=== PATIENT | male | born 1990 | race Caucasian/White ===

== ENCOUNTER 2017-08-22 01:45 | Emergency (ER) | payer SELFPAY ==
[~2017-08-22] VITALS: Ht 180.3 cm; Wt 113.4 kg
[2017-08-22 02:04] VITALS: BP 155/92
[2017-08-22] MEDS ORDERED: ACYC400T PO (02:18)
[2017-08-22] MEDS ORDERED: DOXY100C14 PO (02:18)
--- NOTE | 2017-08-22 02:18 | PHYS DOC ---
Past History Past Medical History: No Pertinent History Past Surgical History: No Surgical History Alcohol Use: Occasionally Drug Use: None Adult General Chief Complaint Chief Complaint: SEXUALLY TRANSMITTED DISEASE [facility] HPI Patient is a pleasant 27-year-old male who has had unprotected intercourse with his partner 2 weeks ago and has now developed discharge from his penis and lesions on the service of his shaft of his penis. Patient is in a relationship with a girlfriend and admits she was unfaithful to him 2 weeks ago and she exposed to gonorrhea and chlamydia. He has developed a small vesicular rash on the surface of his penis which he is concerned maybe for herpes. He's asked for no testing just treatment empirically. He denies any dysuria urgency or frequency discharge discharge from his penis. Denies any back pain, fevers, chills, headache, nausea, vomiting or diarrhea. He denies any prior history of the same. He denies any joint pain, rashes lower body or other symptoms. Review of Systems Review of Systems Constitutional: Denies fever or chills [] Eyes: Denies change in visual acuity, redness, or eye pain [] HENT: Denies nasal congestion or sore throat [] Respiratory: Denies cough or shortness of breath [] Cardiovascular: No additional information not addressed in HPI [] GI: Denies abdominal pain, nausea, vomiting, bloody stools or diarrhea [] : Denies complains of penile discharge Musculoskeletal: Denies back pain or joint pain [] Integument: Patient complains only of a skin rash on the top of his penis Neurologic: Denies headache, focal weakness or sensory changes [] Endocrine: Denies polyuria or polydipsia [] Physical Exam Physical Exam Vital signs written on the chart patient is noted to be mildly tachycardic and hypertensive. Constitutional: Well developed, well nourished, no acute distress, non-toxic appearance. Patient is somewhat anxious and upset[] Cardiovascular:Heart rate regular rhythm, no murmur [] Lungs & Thorax: Bilateral breath sounds clear to auscultation [] Skin: Warm, dry, shallow vesicular rash noted small confucianism on this. Portion of his penis. exam: Testicles have a normal lie, normal cremaster reflex. No tenderness along the testicles. Patient has clear discharge from the urethra with mild erythema around the glans penis. Extremities: No tenderness, or joint swelling apparent Neurologic: Alert and oriented X 3, Psychologic: Affect normal, judgement normal, mood normal. [] Current Patient Data Vital Signs Vital Signs Date Time Temp Pulse Resp B/P (MAP) Pulse Ox O2 Delivery O2 Flow Rate FiO2 08/22/17 02:04 98.5 106 20 99 Room Air EKG EKG [] Radiology/Procedures Radiology/Procedures [] Course & Med Decision Making Course & Med Decision Making Pertinent Labs and Imaging studies reviewed. (See chart for details) []Patient presented for STD exposure and likely first episode of herpes on his penis. Patient is asked for him. Treatment with no tetanus. We talked about HIV exposure as well and he will follow-up with his clinic to get a test of that particular disease process tomorrow. She was given doxycycline, IM Rocephin, by mouth azithromycin, and by mouth acyclovir. Dragon Disclaimer Dragon Disclaimer This chart was dictated in whole or in part using Voice Recognition software in a busy, high-work load, and often noisy Emergency Department environment. It may contain unintended and wholly unrecognized errors or omissions. Departure Departure: Impression: Primary Impression: Urethritis Additional Impression: Herpes simplex Disposition: HOME, SELF-CARE Condition: STABLE Patient Instructions: Genital Herpes, Urethritis, Adult Additional Instructions: My discharge plan Follow up: In addition patient is asked to followup with their primary doctor, within a week for followup examination and to address patient's ongoing medical conditions. Because patient does not have a regular medical doctor, a local physician Resource Sheet will be provided to establish care primary care. Patient is advised that in the Emergency Department primary complaints are addressed and only in light of known signs and symptoms. Patient should return immediately to the emergency department if new signs and symptoms develop or patient's condition worsens in any way. At time of discharge patient was in stable condition and had verbalized understanding of the discharge instructions. Scripts Doxycycline Monohydrate (DOXYCYCLINE MONOHYDRATE) 100 Mg Capsule 1 CAP PO BID, #20 CAP Prov: YOVANNY OVALLE MD 08/22/17 Acyclovir (ACYCLOVIR) 400 Mg Tablet 1 TAB PO TID, #30 TAB Prov: YOVANNY OVALLE MD 08/22/17 Problem Qualifiers YOVANNY OVALLE MD Aug 22, 2017 02:18
[2017-08-22] MEDS ORDERED: ACYCLOVIR 200 MG CAPSULE PO ONE (03:00)
[2017-08-22] MEDS ORDERED: AZITHROMYCIN 250 MG TABLET. PO ONE (03:00)
[2017-08-22] MEDS ORDERED: DOXYCYCLINE HYCLATE 100 MG TABLET PO ONE (03:00)
[2017-08-22] MEDS ORDERED: cefTRIAXone IM 250 MG VIAL IM ONE (03:00)
== END 2017-08-22 02:20 | disposition home or self-care (01) ==
LOC: ER 01:45
DX: N34.2 Other urethritis (principal); B00.9 Herpesviral infection, unspecified
CPT/HCPCS: 96372; 99284; J0456; J0696

== ENCOUNTER 2018-08-30 12:24 | Emergency (ER) | payer SELFPAY ==
[~2018-08-30] VITALS: Ht 180.3 cm; Wt 131.1 kg
[~2018-08-30 12:24] MED LIST: ACYC400T PO; DOXY100C14 PO
[2018-08-30] MEDS ORDERED: IV NORMAL SALINE 1,000ML 1,000 ML IV SCH (12:41)
--- NOTE | 2018-08-30 12:51 | PHYS DOC ---
Past History Past Medical History: No Pertinent History Past Surgical History: No Surgical History Alcohol Use: Occasionally Drug Use: None Adult General Chief Complaint Chief Complaint: FLANK PAIN HPI HPI Patient is a 28-year-old male who presents with complaint of right upper quadrant pain that started at about 6:00 this morning. He rates his pain to be a 10 out of 10 and describes pain as being sharp and stabbing in nature. He states the pain radiates throughout his abdomen and into his back. He admits to nausea but has had no vomiting. Patient states the pain is worsened with movement. He indicates that he does have decreased appetite. He denies any chest pain or shortness breath. Patient states that nothing improves his symptoms. Review of Systems Review of Systems Constitutional: Denies fever or chills [] Respiratory: Denies cough or shortness of breath [] Cardiovascular: Denies chest pain[] GI: Complains of abdominal pain and nausea. Denies vomiting or diarrhea[] Musculoskeletal: Complains of back pain[] Integument: Denies rash or skin lesions [] All other systems were reviewed and found to be within normal limits, except as documented in this note. Allergies Allergies Allergies Coded Allergies Type Severity Reaction Last Updated Verified morphine Allergy Unknown 08/30/18 Yes Uncoded Allergies Type Severity Reaction Last Updated Verified spearment Allergy Unknown 08/22/17 Physical Exam Physical Exam Constitutional: Well developed, well nourished, in moderate distress. [] HENT: Normocephalic, atraumatic, bilateral external ears normal, oropharynx moist, no oral exudates, nose normal. [] Eyes: PERRLA, EOMI, conjunctiva normal, no discharge. [] Neck: Normal range of motion, no tenderness, supple, no stridor. [] Cardiovascular:Heart rate regular rhythm [] Lungs & Thorax: Bilateral breath sounds clear to auscultation [] Abdomen: Bowel sounds normal, contour is morbidly obese, soft, with moderate reported tenderness to palpation in the right upper quadrant. [] Skin: Warm, dry, no erythema, no rash. [] Extremities: No tenderness, no cyanosis, no clubbing, ROM intact, no edema. [] Neurologic: Alert and oriented X 3, normal motor function, normal sensory function, no focal deficits noted. [] EKG EKG [] Radiology/Procedures Radiology/Procedures [] Impressions: IMPRESSION: 1. Mildly enlarged portacaval lymph node. CT follow-up is suggested 2. Small left basilar parenchymal opacities which are most likely postinflammatory. 3. No acute abdominal or pelvic adenopathy is detected. Course & Med Decision Making Course & Med Decision Making Pertinent Labs and Imaging studies reviewed. (See chart for details) [] Dragon Disclaimer Dragon Disclaimer This electronic medical record was generated, in whole or in part, using a voice recognition dictation system. Departure Departure: Impression: Primary Impression: Abdominal pain Disposition: HOME, SELF-CARE Condition: STABLE Referrals: PCPJERALD (PCP) Patient Instructions: Abdominal Pain, HIDA (Hepatobilliary) Scan Additional Instructions: Take prescribed medication as directed and follow-up with your primary care provider in the next 2-3 days. Further evaluation of the gallbladder may be achieved with outpatient HIDA scan. This can be ordered by your primary care provider as an outpatient. Problem Qualifiers Primary Impression: Abdominal pain Abdominal location: right upper quadrant Qualified Codes: R10.11 - Right upper quadrant pain JOSE MCDOWELL Jr. DO Aug 30, 2018 12:51
[2018-08-30 12:56] LABS: BASO # 0.1 x10^3/uL (0.0-0.2); BASO % 1 % (0-3); EOS % 0 % (0-3); HEMATOCRIT 46.5 % (39.0-53.0); HEMOGLOBIN 16.3 g/dL (13.0-17.5); LYMPH # 1.2 x10^3/uL (1.0-4.8); LYMPH % 11 % (24-48); MEAN CORPUSCULAR HEMOGLOBIN 31 pg (25-35); MEAN CORPUSCULAR HGB CONC 35 g/dL (31-37); MEAN CORPUSCULAR VOLUME 87 fL (79-100); MONO # 0.7 x10^3/uL (0.0-1.1); MONO % 6 % (0-9); NEUT # 8.8 x10^3uL (1.8-7.7); NEUT % 82 % (31-73); PLATELET COUNT 300 x10^3/uL (140-400); RED BLOOD COUNT 5.34 x10^6/uL (4.30-5.70); RED CELL DISTRIBUTION WIDTH 13.1 % (11.5-14.5); WHITE BLOOD COUNT 10.8 x10^3/uL (4.0-11.0)
[2018-08-30 13:08] LABS: ALBUMIN 3.8 g/dL (3.4-5.0); ALBUMIN/GLOBULIN RATIO 0.8 (1.0-1.7); CALCIUM 8.7 mg/dL (8.5-10.1); CREATININE 0.9 mg/dL (0.7-1.3); GFR 100.5; POTASSIUM 3.5 mmol/L (3.5-5.1); TOTAL BILIRUBIN 0.8 mg/dL (0.2-1.0); TOTAL PROTEIN 8.4 g/dL (6.4-8.2)
[2018-08-30] MEDS ORDERED: ONDANSETRON PF 4 MG/2 ML VIAL. IV ONE (13:15)
[2018-08-30] MEDS ORDERED: IOHEXOL 300 MG/ML 75 ML VIAL. IV ONE (13:20)
--- NOTE | 2018-08-30 13:31 | RAD ---
CT of the abdomen and pelvis with contrast, 08/30/2018: HISTORY: Right upper quadrant abdominal pain Multidetector CT imaging was performed following an IV bolus injection of iodinated contrast material. No oral contrast material was administered for this study. There is a small linear parenchymal opacity in the left lung base laterally which is probably a scar. There is a nearby small nonspecific 4 mm pulmonary nodule. This is of doubtful significance in a patient of this age. No hepatic abnormality is seen. No dense gallstones are evident. The pancreas is unremarkable. The spleen is of normal size. No renal or adrenal abnormality is detected. No periaortic, iliac or inguinal adenopathy is seen. There is an enlarged portacaval lymph node measuring 2 cm in short axis dimension. The bowel loops are not dilated. The appendix is visualized and shows no abnormality. No free fluid or free air is evident in the abdomen or pelvis. IMPRESSION: 1. Mildly enlarged portacaval lymph node. CT follow-up is suggested 2. Small left basilar parenchymal opacities which are most likely postinflammatory. 3. No acute abdominal or pelvic adenopathy is detected. PQRS Compliance Statement: One or more of the following individualized dose reduction techniques were utilized for this examination: 1. Automated exposure control 2. Adjustment of the mA and/or kV according to patient size 3. Use of iterative reconstruction technique Electronically signed by: Marbin Cadet MD (08/30/2018 1:28 PM) [facility]
[2018-08-30 13:57] LABS: BILIRUBIN,URINE NEG (NEG); CLARITY,URINE CLEAR; COLOR,URINE YELLOW; GLUCOSE,URINE NEG (NEG)
[2018-08-30 13:58] LABS: BACTERIA,URINE 0 /HPF (0-FEW); NITRITE,URINE NEG (NEG); SQUAMOUS EPITHELIAL CELL,UR OCC /LPF; UROBILINOGEN,URINE 0.2 mg/dL (0.2 mg/dL)
[2018-08-30 14:34] VITALS: BP 163/80
== END 2018-08-30 14:51 | disposition home or self-care (01) ==
LOC: ER 12:24 → EDBD 12:24 → ER 14:51
DX: R10.11 Right upper quadrant pain (principal); R59.9 Enlarged lymph nodes, unspecified; Z88.5 Allergy status to narcotic agent
CPT/HCPCS: 36415; 74177; 80053; 81001; 83690; 85025; 96374; 96375; 99285; J2405; J3010; Q9967; J7030

== ENCOUNTER 2020-08-17 03:02 | Emergency (ER) | payer SELFPAY ==
[~2020-08-17] VITALS: Ht 180.3 cm; Wt 139.1 kg
--- NOTE | 2020-08-17 03:27 | PHYS DOC ---
Past History Past Medical History: Gallstones Past Surgical History: No Surgical History Alcohol Use: Occasionally Drug Use: None General Adult HPI: HPI: " My throat is sore.. but the swelling on Lt. is what really bothers me..." Patient is a 30 year old male who presents with above hx and complaints adenopathy Lt side neck and sore throat. Patient has been exposed to his girlfriend who has pneumonia. She is currently on antibiotics. Patient denies any history of immunosuppression. No recent travel outside of [facility]. Review of Systems: Review of Systems: Constitutional: Denies fever or chills Eyes: Denies change in visual acuity HENT: complaints of sore throat and adenopathy Respiratory: Denies cough or shortness of breath Cardiovascular: Denies chest pain or edema GI: Denies abdominal pain, nausea, vomiting, bloody stools or diarrhea : Denies dysuria Musculoskeletal: Denies back pain or joint pain Integument: Denies rash Neurologic: Denies headache, focal weakness or sensory changes Endocrine: Denies polyuria or polydipsia Lymphatic: Denies swollen glands Psychiatric: Denies depression or anxiety Heart Score: Risk Factors: Risk Factors: DM, Current or recent (<one month) smoker, HTN, HLP, family history of CAD, obesity. Risk Scores: Score 0 - 3: 2.5% MACE over next 6 weeks - Discharge Home Score 4 - 6: 20.3% MACE over next 6 weeks - Admit for Clinical Observation Score 7 - 10: 72.7% MACE over next 6 weeks - Early Invasive Strategies Family History: Family History: Noncontributory to presentation Current Medications: Current Meds: Current Medications Medications (Trade) Dose Ordered Sig/Abram Start Time Stop Time Status Last Admin Dose Admin Prednisone (Prednisone) 50 mg 1X ONCE 08/17/20 03:30 08/17/20 03:31 UNV Allergies: Allergies: Allergies Coded Allergies Type Severity Reaction Last Updated Verified morphine Allergy Unknown 08/30/18 Yes Uncoded Allergies Type Severity Reaction Last Updated Verified spearment Allergy Unknown 08/22/17 Physical Exam: PE: Constitutional: No acute distress, non-toxic appearance. [] HENT: Normocephalic, atraumatic, bilateral external ears normal, oropharynx moist, no oral exudates, nose normal. Poor dentition. Eyes: PERRLA, EOMI, conjunctiva normal, no discharge. [] Neck: Normal range of motion, no tenderness, supple, no stridor. Left-sided adenopathy anterior cervical chain Cardiovascular:Heart rate regular rhythm, no murmur [] Lungs & Thorax: Bilateral breath sounds equal at apex with scattered wheezes on auscultation [] Abdomen: Bowel sounds normal, soft, no tenderness, no masses, no pulsatile masses. Obese. Skin: Warm, dry, no erythema, no rash. [] Back: No tenderness, no CVA tenderness. [] Extremities: No tenderness, no cyanosis, no clubbing, ROM intact, no edema. [] Neurologic: Alert and oriented X 3, normal motor function, normal sensory function, no focal deficits noted. [] Psychologic: Affect anxious, judgement normal, mood normal. [] EKG: EKG: [] Radiology/Procedures: Radiology/Procedures: [] Course & Med Decision Making: Course & Med Decision Making Pertinent Labs and Imaging studies reviewed. (See chart for details) Patient gargle Listerine 4 times a day. Take Tylenol and ibuprofen for pain. Benadryl 25 to 50 mg 4 times a day. Take Keflex 500 mg 3 times a day. Follow- up with primary care. Return if any concerns. Encourage patient to stop smoking. Impression: 1. Pharyngitis- Strept. 2. Cervical adenopathy 3. Tobacco use [] Jenniferon Disclaimer: Jhonatan Disclaimer: This electronic medical record was generated, in whole or in part, using a voice recognition dictation system. Departure Departure: Disposition: 01 [place] HOME SELF CARE/HOMELESS Condition: STABLE Referrals: PCP,NO (PCP) Scripts Cephalexin (KEFLEX) 500 Mg Capsule 500 MG PO TID for Strept for 10 Days, #30 CAP Prov: SHANICE PINK MD 08/17/20 SHANICE PINK MD Aug 17, 2020 03:27
[2020-08-17 03:32] VITALS: BP 184/107
[2020-08-17] MEDS ORDERED: predniSONE 10 MG TABLET PO ONE (04:00)
[2020-08-17] MEDS ORDERED: CEPH-264 PO (04:42)
[2020-08-17] MEDS ORDERED: CEPHALEXIN 250 MG CAPSULE ONE (04:43)
[2020-08-17] MEDS ORDERED: CEPHALEXIN 250 MG CAPSULE PO ONE (05:00)
[2020-08-17 05:02] LABS: INFLUENZA A PATIENT NEGATIVE (NEGATIVE); INFLUENZA B PATIENT NEGATIVE (NEGATIVE)
== END 2020-08-17 04:53 | disposition home or self-care (01) ==
LOC: ER 03:02
DX: J02.0 Streptococcal pharyngitis (principal); B95.0 Streptococcus, group A, as the cause of diseases classified elsewhere; R59.0 Localized enlarged lymph nodes; Z72.0 Tobacco use; Z88.5 Allergy status to narcotic agent
CPT/HCPCS: 87804; 87880; 99283; J7512

== ENCOUNTER 2020-08-24 00:07 | Emergency (ER) | payer SELFPAY ==
[~2020-08-24] VITALS: Ht 180.3 cm; Wt 139.3 kg
[~2020-08-24 00:07] MED LIST changes: +CEPH-264 PO
--- NOTE | 2020-08-24 00:49 | RAD ---
EXAM: CHEST AP ONLY 08/24/2020 12:11 AM CLINICAL INDICATION: Chest pain COMPARISON: Chest radiograph 05/19/2009 TECHNIQUE: AP upright view of the chest FINDINGS: The heart and mediastinum are normal. Lungs are slightly hypoexpanded. No consolidation, pleural effusion, or pneumothorax. Pulmonary vascularity is normal. The thoracic skeleton is intact. IMPRESSION: Normal chest radiograph. Electronically signed by: Krissy Bradford MD (08/24/2020 12:46 AM) [id number]
[2020-08-24 01:04] LABS: BASO # 0.1 x10^3/uL (0.0-0.2); BASO % 1 % (0-3); EOS # 0.3 x10^3/uL (0.0-0.7); EOS % 3 % (0-3); HEMATOCRIT 43.9 % (39.0-53.0); HEMOGLOBIN 14.4 g/dL (13.0-17.5); LYMPH # 1.6 x10^3/uL (1.0-4.8); LYMPH % 19 % (24-48); MEAN CORPUSCULAR HEMOGLOBIN 29 pg (25-35); MEAN CORPUSCULAR HGB CONC 33 g/dL (31-37); MEAN CORPUSCULAR VOLUME 89 fL (79-100); MONO % 11 % (0-9); NEUT # 5.5 x10^3uL (1.8-7.7); NEUT % 66 % (31-73); PLATELET COUNT 255 x10^3/uL (140-400); RED BLOOD COUNT 4.93 x10^6/uL (4.30-5.70); RED CELL DISTRIBUTION WIDTH 13.9 % (11.5-14.5); WHITE BLOOD COUNT 8.4 x10^3/uL (4.0-11.0)
[2020-08-24 01:10] LABS: BACTERIA,URINE 0 /HPF (0-FEW); BILIRUBIN,URINE NEG (NEG); CLARITY,URINE CLEAR; COLOR,URINE YELLOW; GLUCOSE,URINE NEG (NEG); NITRITE,URINE NEG (NEG); RBC,URINE 0 /HPF (0-2); SQUAMOUS EPITHELIAL CELL,UR OCC /LPF; UROBILINOGEN,URINE 0.2 mg/dL (0.2 mg/dL)
--- NOTE | 2020-08-24 01:11 | PHYS DOC ---
Past History Past Medical History: Gallstones Past Surgical History: Cholecystectomy Alcohol Use: None Drug Use: None General Adult EDM: Chief Complaint: Neck Pain HPI: HPI: 30-year-old male presents with a left neck swelling and pain. He has had intermittent pain in this area for about a week. It is gotten worse last couple of days. Today he feels like his neck is much more swollen and tender to the touch. Pain radiated down into his chest and he had some chest pain. He has not had this before and he was very concerned. The patient was seen in this emergency room a few days ago for possible infected tooth and got 1 dose of Keflex but did not fill his prescription. He denies fever or chills at home. Review of Systems: Review of Systems: Constitutional: Denies fever or chills Eyes: Denies change in visual acuity HENT: sore throat Respiratory: Denies cough or shortness of breath Cardiovascular: Chest pain GI: Denies abdominal pain, nausea, vomiting, bloody stools or diarrhea : Denies dysuria Musculoskeletal: Denies back pain or joint pain Integument: Denies rash Neurologic: Denies headache, focal weakness or sensory changes Endocrine: Denies polyuria or polydipsia Lymphatic: Denies swollen glands Psychiatric: Denies depression or anxiety Heart Score: HEART Score for Chest Pain: HEART Score for Chest Pain Response (Comments) Value History Slighlty/Non-Suspicious 0 ECG Normal 0 Age < 45 0 Risk Factors 1 or 2 Risk Factors 1 Troponin < Normal Limit 0 Total 1 Risk Factors: Risk Factors: DM, Current or recent (<one month) smoker, HTN, HLP, family history of CAD, obesity. Risk Scores: Score 0 - 3: 2.5% MACE over next 6 weeks - Discharge Home Score 4 - 6: 20.3% MACE over next 6 weeks - Admit for Clinical Observation Score 7 - 10: 72.7% MACE over next 6 weeks - Early Invasive Strategies Current Medications: Current Meds: Current Medications Medications (Trade) Dose Ordered Sig/Abram Start Time Stop Time Status Last Admin Dose Admin Iohexol (Omnipaque 300 Mg/ml) 75 ml 1X ONCE 08/24/20 01:15 08/24/20 01:16 UNV Allergies: Allergies: Allergies Coded Allergies Type Severity Reaction Last Updated Verified spearmint Allergy Intermediate 08/24/20 Yes morphine Adverse Reaction Unknown 08/24/20 Yes Physical Exam: PE: Constitutional: Well developed, well nourished, no acute distress, non-toxic appearance. [] HENT: Normocephalic, atraumatic, bilateral external ears normal, oropharynx moist, no oral exudates, nose normal. [] Eyes: PERRLA, EOMI, conjunctiva normal, no discharge. [] Neck: Normal range of motion, no tenderness, supple, no stridor. [] Cardiovascular:Heart rate regular rhythm, no murmur [] Lungs & Thorax: Bilateral breath sounds clear to auscultation [] Abdomen: Bowel sounds normal, soft, no tenderness, no masses, no pulsatile masses. [] Skin: Warm, dry, no erythema, no rash. [] Back: No tenderness, no CVA tenderness. [] Extremities: No tenderness, no cyanosis, no clubbing, ROM intact, no edema. [] Neurologic: Alert and oriented X 3, normal motor function, normal sensory funct ion, no focal deficits noted. [] Psychologic: Affect normal, judgement normal, mood normal. [] Current Patient Data: Labs: Laboratory Tests Test 08/24/20 00:25 White Blood Count 8.4 x10^3/uL (4.0-11.0) Red Blood Count 4.93 x10^6/uL (4.30-5.70) Hemoglobin 14.4 g/dL (13.0-17.5) Hematocrit 43.9 % (39.0-53.0) Mean Corpuscular Volume 89 fL (79-100) Mean Corpuscular Hemoglobin 29 pg (25-35) Mean Corpuscular Hemoglobin Concent 33 g/dL (31-37) Red Cell Distribution Width 13.9 % (11.5-14.5) Platelet Count 255 x10^3/uL (140-400) Neutrophils (%) (Auto) 66 % (31-73) Lymphocytes (%) (Auto) 19 % (24-48) L Monocytes (%) (Auto) 11 % (0-9) H Eosinophils (%) (Auto) 3 % (0-3) Basophils (%) (Auto) 1 % (0-3) Neutrophils # (Auto) 5.5 x10^3uL (1.8-7.7) Lymphocytes # (Auto) 1.6 x10^3/uL (1.0-4.8) Monocytes # (Auto) 1.0 x10^3/uL (0.0-1.1) Eosinophils # (Auto) 0.3 x10^3/uL (0.0-0.7) Basophils # (Auto) 0.1 x10^3/uL (0.0-0.2) Vital Signs: Vital Signs Date Time Temp Pulse Resp B/P (MAP) Pulse Ox O2 Delivery O2 Flow Rate FiO2 08/24/20 00:09 98.1 90 16 104/54 (71) 97 EKG: EKG: Sinus rhythm, rate 90, normal axis, no ST elevations or depressions [] Radiology/Procedures: Radiology/Procedures: [] Impressions: EXAM: CHEST AP ONLY 08/24/2020 12:11 AM CLINICAL INDICATION: Chest pain COMPARISON: Chest radiograph 05/19/2009 TECHNIQUE: AP upright view of the chest FINDINGS: The heart and mediastinum are normal. Lungs are slightly hypoexpanded. No consolidation, pleural effusion, or pneumothorax. Pulmonary vascularity is normal. The thoracic skeleton is intact. IMPRESSION: Normal chest radiograph. Electronically signed by: Krissy Bradford MD (08/24/2020 12:46 AM) [id number] DICTATED AND SIGNED BY: KRISSY BRADFORD MD DATE: 08/24/20 0046 CC: JOSHUA ALMONTE DO; PCP,NO ~ EXAMINATION: CT SOFT TISSUE NECK W/CONTRAST, 08/24/2020 12:51 AM CLINICAL INDICATION: Left-sided swelling, rule out abscess COMPARISON: None TECHNIQUE: Helical CT imaging performed of the neck after the administration of 72 mm Omnipaque 300 intravenous contrast. Sagittal and coronal reformats were obtained. One or more of the following individualized dose reduction techniques were utilized for this examination: 1. Automated exposure control 2. Adjustment of the mA and/or kV according to patient size 3. Use of iterative reconstruction technique. FINDINGS: There is no soft tissue mass or abscess. The nasopharynx, oropharynx, hypopharynx, and larynx are normal. Parotid, submandibular, and thyroid glands are normal. There are multiple small bilateral cervical chain lymph nodes, nonspecific. Mild mucosal thickening in the ethmoid air cells. Visualized skull base is otherwise unremarkable. Prevertebral soft tissues normal. Lung apices are clear. Cervical spine is normal. IMPRESSION: No soft tissue mass or abscess. Electronically signed by: Krissy Bradford MD (08/24/2020 1:55 AM) [id number] DICTATED AND SIGNED BY: KRISSY BRADFORD MD DATE: 08/24/20 0155 CC: JOSHUA ALMONTE DO; PCP,NO ~ Course & Med Decision Making: Course & Med Decision Making Pertinent Labs and Imaging studies reviewed. (See chart for details) The patient's chest x-ray is negative for acute findings. His labs are negative for acute findings for some elevated liver enzymes. His troponin is negative. CT of his neck does not show an abscess. He has some nonspecific swelling of anterior cervical lymph nodes. I will give the patient a gram of Rocephin to cover for possible dental infection. His urine drug screen is positive for methamphetamines. This is not helping his situation. He is stable for discharge at this time. [] Dragon Disclaimer: Dragon Disclaimer: This electronic medical record was generated, in whole or in part, using a voice recognition dictation system. Departure Departure: Impression: Primary Impression: Dental infection Additional Impression: Sore throat Disposition: 01 [place] HOME SELF CARE/HOMELESS Condition: STABLE Referrals: PCP,NO (PCP) Patient Instructions: Dental Caries Scripts Cephalexin (KEFLEX) 500 Mg Capsule 1 CAP PO TID for dental infection for 7 Days, #21 CAP 0 Refills Prov: JOSHUA ALMONTE DO 08/24/20 JOSHUA ALMONTE DO Aug 24, 2020 01:11
[2020-08-24 01:12] LABS: CALCIUM 8.9 mg/dL (8.5-10.1); CREATININE 1.1 mg/dL (0.7-1.3); GFR 78.6; POTASSIUM 4.1 mmol/L (3.5-5.1)
[2020-08-24 01:13] LABS: BARBITURATES NEG (NEG); BENZODIAZEPINES NEG (NEG); CANNABINOIDS NEG (NEG); COCAINE NEG (NEG); METHADONE NEG (NEG); OPIATES NEG (NEG); PHENCYCLIDINE NEG (NEG)
[2020-08-24 01:16] LABS: AMPHETAMINE/METHAMPHETAMINE POS (NEG)
[2020-08-24 01:18] LABS: ALBUMIN 3.5 g/dL (3.4-5.0); ALBUMIN/GLOBULIN RATIO 0.9 (1.0-1.7); TOTAL BILIRUBIN 0.2 mg/dL (0.2-1.0); TOTAL PROTEIN 7.3 g/dL (6.4-8.2)
[2020-08-24] MEDS ORDERED: IOHEXOL 300 MG/ML 75 ML VIAL. IV ONE (01:30)
[2020-08-24] MEDS ORDERED: CONTRAST GIVEN. MC PRN (01:30)
--- NOTE | 2020-08-24 01:58 | RAD ---
EXAMINATION: CT SOFT TISSUE NECK W/CONTRAST, 08/24/2020 12:51 AM CLINICAL INDICATION: Left-sided swelling, rule out abscess COMPARISON: None TECHNIQUE: Helical CT imaging performed of the neck after the administration of 72 mm Omnipaque 300 intravenous contrast. Sagittal and coronal reformats were obtained. One or more of the following individualized dose reduction techniques were utilized for this examination: 1. Automated exposure control 2. Adjustment of the mA and/or kV according to patient size 3. Use of iterative reconstruction technique. FINDINGS: There is no soft tissue mass or abscess. The nasopharynx, oropharynx, hypopharynx, and larynx are normal. Parotid, submandibular, and thyroid glands are normal. There are multiple small bilateral cervical chain lymph nodes, nonspecific. Mild mucosal thickening in the ethmoid air cells. Visualized skull base is otherwise unremarkable. Prevertebral soft tissues normal. Lung apices are clear. Cervical spine is normal. IMPRESSION: No soft tissue mass or abscess. Electronically signed by: Krissy Bradford MD (08/24/2020 1:55 AM) [id number]
[2020-08-24] MEDS ORDERED: CEPH-264 PO (02:11)
[2020-08-24] MEDS ORDERED: IV NORMAL SALINE 50ML 50 ML ONE (02:16)
[2020-08-24] MEDS ORDERED: cefTRIAXone SODIUM 1 GM VIAL ONE (02:17)
[2020-08-24 02:43] VITALS: BP 157/93
--- NOTE | 2020-08-24 05:51 | EKG ---
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
== END 2020-08-24 02:43 | disposition home or self-care (01) ==
LOC: ER 00:07
DX: K04.7 Periapical abscess without sinus (principal); J02.9 Acute pharyngitis, unspecified; R07.89 Other chest pain; Z88.8 Allergy status to other drugs, medicaments and biological substances; Z88.5 Allergy status to narcotic agent
CPT/HCPCS: 36415; 70491; 71045; 80053; 80307; 81001; 84484; 85025; 87086; 93005; 96365; 99285; J0696; Q9967

== ENCOUNTER 2021-02-16 18:34 | Emergency (ER) | payer OTHER ==
[~2021-02-16] VITALS: Ht 180.3 cm; Wt 139.3 kg
[2021-02-16 18:34] VITALS: BP 169/99
[2021-02-16] MEDS ORDERED: diazePAM 5 MG TABLET. ONE (19:00)
[2021-02-16] MEDS ORDERED: diazePAM 5 MG TABLET. PO ONE (19:00)
--- NOTE | 2021-02-16 19:00 | PHYS DOC ---
Past History Past Medical History: Gallstones Past Surgical History: Cholecystectomy Alcohol Use: None Drug Use: None Adult General Chief Complaint Chief Complaint: MEDICAL CLEARANCE HPI HPI Patient is a 31-year-old male, with a past medical history significant for hypertension and methamphetamine use who presents with the Police Department for medical clearance before going to [facility]. Patient states that he did some methamphetamine about 3 hours before coming to the emergency department. Denies headache, changes in vision, chest pain, shortness of breath, abdominal pain, nausea, vomiting. States he feels well outside of the dry mouth and requested something to drink. States he does not think he needed to come to the emergency department but the police wanted him to before going to retirement. States he feels completely safe to be discharged. Review of Systems Review of Systems Review of systems otherwise unremarkable except noted in HPI Allergies Allergies Allergies Coded Allergies Type Severity Reaction Last Updated Verified spearmint Allergy Intermediate 08/24/20 Yes morphine Adverse Reaction Unknown 08/24/20 Yes Physical Exam Physical Exam Constitutional: Well developed, well nourished, no acute distress, non-toxic appearance. [] HENT: Normocephalic, atraumatic, bilateral external ears normal, oropharynx moist, no oral exudates, nose normal. [] Eyes: conjunctiva normal, no discharge. [] Cardiovascular:Heart rate regular rhythm, no murmur [] Lungs & Thorax: Bilateral breath sounds clear to auscultation [] Abdomen: Bowel sounds normal, soft, no tenderness, no masses, no pulsatile masses. [] Skin: Warm, dry, no erythema, no rash. [] Extremities: No tenderness, no cyanosis, no clubbing, ROM intact, no edema. [] Neurologic: Alert and oriented X 3, normal motor function, normal sensory function, no focal deficits noted. [] Psychologic: Affect normal, judgement normal, mood normal. [] EKG EKG Rate of 90, normal QRS, normal QTC, no STEMI [] Radiology/Procedures Radiology/Procedures [] Heart Score C/O Chest Pain: No Risk Factors: Risk Factors: DM, Current or recent (<one month) smoker, HTN, HLP, family history of CAD, obesity. Risk Scores: Risk Factors: DM, Current or recent (<one month) smoker, HTN, HLP, family history of CAD, obesity. Course & Med Decision Making Course & Med Decision Making Patient is a 31-year-old male with a past medical history significant for uncontrolled hypertension and meth use who presents with PD for clearance before going to [facility]. Vital signs notable for hypertension. Physical exam noted above. EKG noted above and not concerning for ischemia. Patient took p.o. without issue. Patient states he feels well, is asymptomatic and feels safe to discharge with police department. PD also states that they feel safe, as he has been pleasant and cooperative. Gave strict return precautions to the ED both the patient and PD. Both verbalized understanding, and agreed with plan of discharge in custody. [] Dragon Disclaimer Dragon Disclaimer This electronic medical record was generated, in whole or in part, using a voice recognition dictation system. Departure Departure: Impression: Primary Impression: Hypertension Additional Impression: Methamphetamine use Disposition: 01 DC HOME SELF CARE/HOMELESS Condition: GOOD Referrals: PCP,NO (PCP) NOELLE ARIAS MD Patient Instructions: Hypertension, Methamphetamine Abuse, Complications Additional Instructions: Please read all the attached information. Please cease any use of substances that are not prescribed by your primary care physician. Please contact your primary care physician as soon as you can to discuss your ED visit, and hypertension and need for continued evaluation and treatment of that. 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 Problem Qualifiers LOUIE APODACA MD Feb 16, 2021 19:00
--- NOTE | 2021-02-16 19:14 | EKG ---
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
== END 2021-02-16 19:12 | disposition home or self-care (01) ==
LOC: EEVIPCON 18:34 → ER 18:34
DX: I10 Essential (primary) hypertension (principal); F15.90 Other stimulant use, unspecified, uncomplicated; Z88.5 Allergy status to narcotic agent; Z91.018 Allergy to other foods
CPT/HCPCS: 93005; 99283

== ENCOUNTER 2021-06-16 15:52 | Emergency (ER) | payer SELFPAY ==
[~2021-06-16] VITALS: Ht 180.3 cm; Wt 125.7 kg
[~2021-06-16 15:52] MED LIST changes: +ACYC-12 PO; -ACYC400T PO; +DOXY-181 PO; -DOXY100C14 PO
--- NOTE | 2021-06-16 16:15 | PHYS DOC ---
Past History Past Medical History: Gallstones, Hypertension Past Surgical History: Cholecystectomy Alcohol Use: None Drug Use: None General Adult EDM: Chief Complaint: BACK PAIN OR INJURY HPI: HPI: Patient is a 31-year-old male past medical history of IV drug abuse presents with a chief complaint of right flank pain. Patient states approximately 1 hour prior to arrival he injected a vial of testosterone that he found on the street. Patient states viral read 200 mg per 1 mL of testosterone. Patient states he injected the full 1 mg. Patient states he injected intravenously. Shortly after onset of symptoms patient complains of right flank pain. He states he feels nauseous but has not vomited. 31-year-old male past medical history IV drug abuse resents with a chief complaint of right flank pain. Patient states he found a vial of testosterone in the street and injected it in order to get high. The bottle of testosterone reads 200mg/mL. Patient injected approximately 0.5 mL. Patient states shortly after onset started to experience right flank pain and nausea. Patient is afebrile and his vital signs are stable. Patient admits to IV drug abuse meth this morning. Review of Systems: Review of Systems: Review of systems: Constitutional symptoms- No fever, no chills. Eyes- No Discharge, No Visual Loss Respiratory symptoms- No shortness of breath, No wheezing, No Dyspnea on Exertion Cardiovascular Systems; No chest pain, No Palpitations, No syncope Gastrointestinal symptoms: NO abdominal pain, no nausea, no vomiting or diarrhea. Genitourinary symptoms: No dysuria. Musculoskeletal symptoms: Positive back pain No extremity pain. NEUROLOGICAL Symptoms: No headache, no generalized weakness; No focal Weakness Skin: No rash. Allergies: Allergies: Allergies Coded Allergies Type Severity Reaction Last Updated Verified spearmint Allergy Intermediate 08/24/20 Yes morphine Adverse Reaction Unknown 08/24/20 Yes Physical Exam: PE: Constitutional: Well developed, well nourished, no acute distress, non-toxic appearance. [] HENT: Normocephalic, atraumatic, bilateral external ears normal, oropharynx moist, no oral exudates, nose normal. [] Eyes: PERRLA, EOMI, conjunctiva normal, no discharge. [] Neck: Normal range of motion, no tenderness, supple, no stridor. [] Cardiovascular:Heart rate regular rhythm, no murmur [] Lungs & Thorax: Bilateral breath sounds clear to auscultation [] Abdomen: Bowel sounds normal, soft, no tenderness, no masses, no pulsatile masses. [] Skin: Warm, dry, no erythema, no rash. [] Back: No tenderness, no CVA tenderness. [] Extremities: No tenderness, no cyanosis, no clubbing, ROM intact, no edema. [] Neurologic: Alert and oriented X 3, normal motor function, normal sensory function, no focal deficits noted. [] Psychologic: Affect normal, judgement normal, mood normal. [] EKG: EKG: [] Radiology/Procedures: Radiology/Procedures: [] Heart Score: C/O Chest Pain: N/A Risk Factors: Risk Factors: DM, Current or recent (<one month) smoker, HTN, HLP, family history of CAD, obesity. Risk Scores: Score 0 - 3: 2.5% MACE over next 6 weeks - Discharge Home Score 4 - 6: 20.3% MACE over next 6 weeks - Admit for Clinical Observation Score 7 - 10: 72.7% MACE over next 6 weeks - Early Invasive Strategies Course & Med Decision Making: Course & Med Decision Making Pertinent Labs and Imaging studies reviewed. (See chart for details) [] Was evaluated for chief complaint. Work-up consisted of laboratory analysis. Urine was obtained no acute abnormalities. Poison control contacted advised observation. Patient's vital signs are stable. Patient without any fevers or chills. He has no neurological deficits. At this time I have no clinical concern for epidural abscess related to IV drug abuse. Patient advised to take Tylenol ibuprofen as needed for pain. Advise against IV drug abuse. Patient left ER prior to nursing able to discharge. Jhonatan Disclaimer: Jhonatan Disclaimer: This electronic medical record was generated, in whole or in part, using a voice recognition dictation system. Departure Departure: Impression: Primary Impression: Back pain Additional Impression: IVDU (intravenous drug user) Disposition: HOME / SELF CARE / HOMELESS Condition: STABLE Referrals: PCP,NO (PCP) Patient Instructions: Back Pain, Adult, Drug Abuse, FAFATEMEH Joiner I DO Jun 16, 2021 16:15
[2021-06-16 16:17] VITALS: BP 154/104
[2021-06-16 17:27] LABS: BILIRUBIN,URINE NEG (NEG); CLARITY,URINE HAZY; COLOR,URINE AMBER; GLUCOSE,URINE NEG (NEG); NITRITE,URINE NEG (NEG); UROBILINOGEN,URINE 0.2 mg/dL (0.2 mg/dL)
[2021-06-16 17:28] LABS: BACTERIA,URINE FEW /HPF (0-FEW); RBC,URINE RARE /HPF (0-2)
== END 2021-06-16 17:45 | disposition home or self-care (01) ==
LOC: ER 15:52
DX: M54.9 Dorsalgia, unspecified (principal); I10 Essential (primary) hypertension; Z90.49 Acquired absence of other specified parts of digestive tract
CPT/HCPCS: 81001; 87077; 87086; 99283

== ENCOUNTER 2021-09-01 05:25 | Emergency (ER) | payer SELFPAY ==
[~2021-09-01] VITALS: Ht 175.3 cm; Wt 98.0 kg
--- NOTE | 2021-09-01 05:32 | PHYS DOC ---
Past History Past Medical History: Gallstones, Hypertension Additional Past Medical Histor: IV DRUG USE (SHANICE PINK MD) Past Surgical History: No Surgical History (SHANICE PINK MD) Alcohol Use: Occasionally Drug Use: None (SHANICE PINK MD) General Adult HPI: HPI: ". I shot up about 1/2 gram of meth.. tonight.. here in my fucking arm.. I shot up two times.. and now I having these fucking spasm.. my jaw hurts... from g rinding my fucking teeth.. .. my back is having spasms.. .. I got fucking shakes.. " Patient is a 31 year old male who presents with above hx and complaints of muscle spasms and mental status change . Patient states all these changes occurred after using approximately one half a gram of meth by 2 IV injections. Patient states he has not had this problem before when he uses methamphetamine. Patient does have a past medical history of IV drug use primarily methamphetamine. Patient not currently following up with primary care physician. Has followed with Dr. Martinez in the past. Patient does complain of some nausea. No recent travel. No specific ill contacts. No history of immunosuppression.. (SHANICE PINK MD) Review of Systems: Review of Systems: Constitutional: Denies fever or chills Eyes: Denies change in visual acuity HENT: Denies nasal congestion or sore throat. Complains of jaw spasm Respiratory: Denies cough or shortness of breath Cardiovascular: Denies chest pain or edema. Complains of tachycardia GI: Denies abdominal pain, nausea, vomiting, bloody stools or diarrhea : Denies dysuria Musculoskeletal: Complains of muscle spasms in back and arms. Integument: Denies rash Neurologic: Denies headache, focal weakness or sensory changes Endocrine: Denies polyuria or polydipsia Lymphatic: Denies swollen glands Psychiatric: Complains of anxiety (SHANICE PINK MD) Family History: Family History: Noncontributory to presentation. (SHANICE PINK MD) Current Medications: Current Meds: See nursing for home meds. (SHANICE PINK MD) Allergies: Allergies: Allergies Coded Allergies Type Severity Reaction Last Updated Verified spearmint Allergy Intermediate 08/24/20 Yes morphine Adverse Reaction Unknown 08/24/20 Yes (SHANICE PINK MD) Physical Exam: PE: Constitutional: In acute emotional distress, twitching in appearance. [] HENT: Normocephalic, atraumatic, bilateral external ears normal, oropharynx moist, no oral exudates, nose normal. Poor dentition. Eyes: PERRLA, EOMI, conjunctiva normal, no discharge. [] Neck: Normal range of motion, no tenderness, supple, no stridor. [] Cardiovascular: Tachycardia heart rate regular rhythm, no murmur [] Lungs & Thorax: Bilateral breath sounds to apex with scattered wheezes on auscultation [] Abdomen: Bowel sounds decreased, soft, no tenderness, no masses, no pulsatile masses. [] Skin: Warm, dry, no erythema, no rash. Multiple old injection sites. Some new injection sites. Back: Complains of back spasms and tenderness, no CVA tenderness. [] Extremities: Complains of muscle spasms shoulder, arms, tenderness, no cyanosis, no clubbing, ROM intact, no edema. No cording appreciated. Multiple old injection narvaez and scaring. Neurologic: Alert and oriented X 3, moves all extremities on request, does have distal sensory, no focal deficits noted. Twitching and spasm movements. Psychologic: Affect anxious, judgement normal, mood normal. [] (SHANICE PINK MD) EKG: EKG: My interpretation EKG shows sinus rhythm at 65 bpm. Time EKG 621 hours. [] (SHANICE PINK MD) Radiology/Procedures: Radiology/Procedures: [] (SHANICE PINK MD) Radiology/Procedures: [place] [address] IMAGING REPORT Signed PATIENT: CHANDLER MARROQUIN ACCOUNT: [id number] : 1990 LOCATION: ER AGE: 31 SEX: M EXAM STATUS: REG ER ORD. PHYSICIAN: SHANICE PINK MD REASON: AMS, LEFT SIDED NECK SPASM, PT WOULD NOT HOLD STILL PROCEDURE: CT ANGIOGRAPHY HEAD AND NECK EXAM: CT HEAD/BRAIN WO, CTA HEAD AND NECK W/WO CONTRAST DATE: 09/01/2021 6:01 AM INDICATION: AMS, PT WOULD NOT HOLD STILL TECHNIQUE: 5 mm axial tomographic images were obtained through the head before contrast. CTA angiogram of the head and neck was obtained after IV bolus administration of contrast. The images were sent to workstation and multiplanar reconstructions were obtained. Multiplanar reconstruction images to include MIP and 3-D reconstruction images are submitted. One or more of the following dose reduction techniques were utilized: Automated exposure control (AEC), Adjustment of mA and/or kV according to patient size, Use of iterative reconstruction technique such as ASiR, CT scan done according to ALARA and image gently/image wisely COMPARISON: None. FINDINGS: Noncontrast CT: The brain parenchyma is normal in attenuation. No intra- or extra-axial mass or fluid collection. No hyperdense intracranial hemorrhage. The ventricles are normal in size and configuration without midline shift. There is normal christensen- white matter differentiation. The subarachnoid cisterns are patent. The visualized paranasal sinuses are well aerated. The mastoid air cells are clear. The visualized portions of the orbits are normal. No aggressive osseous lesion or fracture. CTA Head: The visualized distal internal carotid arteries, anterior and middle cerebral arteries are patent and normal caliber. The distal vertebral arteries, basilar artery, and posterior cerebral arteries are patent and normal caliber. No aneurysm or arteriovenous malformation is seen. CTA Neck: Right carotid: The right common carotid artery is patent and normal caliber. The carotid bifurcation is normal. No stenosis of the right internal carotid artery per NASCET criteria. The right external carotid artery is patent. Left carotid: The left common carotid artery is patent and normal caliber. The carotid bifurcation is normal. No stenosis of the left internal carotid artery per NASCET criteria. The left external carotid artery is patent. Right vertebral: The right vertebral artery is patent and normal caliber. Left vertebral: The left vertebral artery is patent and normal caliber. The visualized portions of the aortic arch are normal. The origins of the brachiocephalic and subclavian arteries are normal. No cervical lymphadenopathy. The thyroid gland is normal. The parotid and submandibular glands are normal. Multiple dental caries in. Focal lucencies. The cervical spine is normal. The visualized portions of the lungs are clear. IMPRESSION: 1. No acute intracranial process by noncontrast head CT. 2. No aneurysm. No intracranial stenosis or occlusion. 3. No stenosis of the cervical carotid or vertebral arteries. 4. Multiple dental caries and periapical lucencies. RS Compliance Statement - Stenosis calculations for CT, MR and conventional angiography are based upon measurement of the distal ICA diameter in accordance with the NASCET methodology. Electronically signed by: Michelle Gray MD (09/01/2021 7:47 AM) [facility] DICTATED AND SIGNED BY: MICHELLE GRAY MD DATE: 09/01/21 0786 CC: SHANICE PINK MD; SONIA MARTINEZ DO ~MTH0 [address] [place] [address] IMAGING REPORT Signed PATIENT: CHANDLER MARROQUIN ACCOUNT: [id number] : 1990 LOCATION: ER AGE: 31 SEX: M EXAM STATUS: REG ER ORD. PHYSICIAN: SHANICE PINK MD REASON: dyspnea PROCEDURE: PORTABLE CHEST 1V EXAM: CHEST 1 VIEW History: Dyspnea COMPARISON: None available. TECHNIQUE: Single portable radiograph of the chest FINDINGS: The cardiac silhouette is unremarkable. The lungs are clear bilaterally. The costophrenic sulci are clear and well demarcated. IMPRESSION: No radiographic evidence of an acute cardiopulmonary process. Electronically signed by: Dima Hussein MD (09/01/2021 5:52 AM) [id number] DICTATED AND SIGNED BY: DIMA HUSSEIN MD DATE: 09/01/21 0550 CC: SHANICE PINK MD; PCP,NO ~MTH0 0 (NACHO MILLER MD) Heart Score: C/O Chest Pain: Yes HEART Score for Chest Pain: HEART Score for Chest Pain Response (Comments) Value History Slighlty/Non-Suspicious 0 ECG Normal 0 Age < 45 0 Risk Factors 1 or 2 Risk Factors 1 Troponin < Normal Limit 0 Total 1 Risk Factors: Risk Factors: DM, Current or recent (<one month) smoker, HTN, HLP, family history of CAD, obesity. Risk Scores: Score 0 - 3: 2.5% MACE over next 6 weeks - Discharge Home Score 4 - 6: 20.3% MACE over next 6 weeks - Admit for Clinical Observation Score 7 - 10: 72.7% MACE over next 6 weeks - Early Invasive Strategies (SHANICE PINK MD) C/O Chest Pain: N/A (NACHO MILLER MD) Course & Med Decision Making: Course & Med Decision Making Pertinent Labs and Imaging studies reviewed. (See chart for details) Patient endorsed to Dr. Miller at shift change Impression: 1. Muscle spasms 2. History of polysubstance abuse 3. Accelerated HTN 4. Mild Elevation AST/ ALT [] (SHANICE PINK MD) Course & Med Decision Making Accepted patient care at shift change. Patient slept for several hours with stable vital signs. Woke up and ambulated to the restroom with and has clear speech. (NACHO MILLER MD) Dragon Disclaimer: Dragon Disclaimer: This electronic medical record was generated, in whole or in part, using a voice recognition dictation system. (SHANICE PINK MD) Departure Departure: Impression: Primary Impression: Methamphetamine-induced psychotic disorder Disposition: HOME / SELF CARE / HOMELESS Condition: IMPROVED Referrals: PCP,NO (PCP) Patient Instructions: Methamphetamine Abuse, Complications Dragon Disclaimer This chart was dictated in whole or in part using Voice Recognition software in a busy, high-work load, and often noisy Emergency Department environment. It may contain unintended and wholly unrecognized errors or omissions. (SHANICE PINK MD) Dragon Disclaimer This chart was dictated in whole or in part using Voice Recognition software in a busy, high-work load, and often noisy Emergency Department environment. It may contain unintended and wholly unrecognized errors or omissions. (SHANICE PINK MD) SHANICE PINK MD Sep 01, 2021 05:31 NACHO MILLER MD Sep 01, 2021 09:15
--- NOTE | 2021-09-01 05:54 | RAD ---
EXAM: CHEST 1 VIEW History: Dyspnea COMPARISON: None available. TECHNIQUE: Single portable radiograph of the chest FINDINGS: The cardiac silhouette is unremarkable. The lungs are clear bilaterally. The costophrenic sulci are clear and well demarcated. IMPRESSION: No radiographic evidence of an acute cardiopulmonary process. Electronically signed by: Dima Hussein MD (09/01/2021 5:52 AM) [id number]
[2021-09-01] MEDS ORDERED: IV RINGERS SOLUTION,LACTATED 1,000 ML IV SCH (06:00)
[2021-09-01] MEDS ORDERED: CONTRAST GIVEN. MC PRN (06:15)
[2021-09-01] MEDS ORDERED: IOHEXOL 350 MG/ML 100 ML VIAL. IV ONE (06:30)
[2021-09-01 06:36] LABS: CALCIUM 9.1 mg/dL (8.5-10.1); CREATININE 0.9 mg/dL (0.7-1.3); GFR 98.4; POTASSIUM 3.7 mmol/L (3.5-5.1)
[2021-09-01 06:37] LABS: BASO % 1 % (0-3); EOS # 0.2 x10^3/uL (0.0-0.7); EOS % 3 % (0-3); HEMATOCRIT 39.8 % (39.0-53.0); HEMOGLOBIN 13.2 g/dL (13.0-17.5); LYMPH # 1.3 x10^3/uL (1.0-4.8); LYMPH % 20 % (24-48); MEAN CORPUSCULAR HEMOGLOBIN 30 pg (25-35); MEAN CORPUSCULAR HGB CONC 33 g/dL (31-37); MEAN CORPUSCULAR VOLUME 90 fL (79-100); MONO # 0.7 x10^3/uL (0.0-1.1); MONO % 12 % (0-9); NEUT # 4.1 x10^3uL (1.8-7.7); NEUT % 65 % (31-73); PLATELET COUNT 210 x10^3/uL (140-400); RED BLOOD COUNT 4.45 x10^6/uL (4.30-5.70); RED CELL DISTRIBUTION WIDTH 14.2 % (11.5-14.5); WHITE BLOOD COUNT 6.3 x10^3/uL (4.0-11.0)
--- NOTE | 2021-09-01 06:39 | EKG ---
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
[2021-09-01 06:42] LABS: ALBUMIN 3.9 g/dL (3.4-5.0); DIRECT BILIRUBIN 0.2 mg/dL (0.0-0.2); TOTAL BILIRUBIN 0.6 mg/dL (0.2-1.0); TOTAL PROTEIN 7.8 g/dL (6.4-8.2)
--- NOTE | 2021-09-01 07:50 | RAD ---
EXAM: CT HEAD/BRAIN WO, CTA HEAD AND NECK W/WO CONTRAST DATE: 09/01/2021 6:01 AM INDICATION: AMS, PT WOULD NOT HOLD STILL TECHNIQUE: 5 mm axial tomographic images were obtained through the head before contrast. CTA angiogra m of the head and neck was obtained after IV bolus administration of contrast. The images were sent t o workstation and multiplanar reconstructions were obtained. Multiplanar reconstruction images to in clude MIP and 3-D reconstruction images are submitted. One or more of the following dose reduction techniques were utilized: Automated exposure control (AEC ), Adjustment of mA and/or kV according to patient size, Use of iterative reconstruction technique castillo ch as ASiR, CT scan done according to ALARA and image gently/image wisely COMPARISON: None. FINDINGS: Noncontrast CT: The brain parenchyma is normal in attenuation. No intra- or extra-axial mass or fluid collection. No hyperdense intracranial hemorrhage. The ventricles are normal in size and configuration without midli ne shift. There is normal christensen-white matter differentiation. The subarachnoid cisterns are patent. The visualized paranasal sinuses are well aerated. The mastoid air cells are clear. The visualized po rtions of the orbits are normal. No aggressive osseous lesion or fracture. CTA Head: The visualized distal internal carotid arteries, anterior and middle cerebral arteries are patent and normal caliber. The distal vertebral arteries, basilar artery, and posterior cerebral arteries are p atent and normal caliber. No aneurysm or arteriovenous malformation is seen. CTA Neck: Right carotid: The right common carotid artery is patent and normal caliber. The carotid bifurcation is normal. No stenosis of the right internal carotid artery per NASCET criteria. The right external c arotid artery is patent. Left carotid: The left common carotid artery is patent and normal caliber. The carotid bifurcation is normal. No stenosis of the left internal carotid artery per NASCET criteria. The left external carot id artery is patent. Right vertebral: The right vertebral artery is patent and normal caliber. Left vertebral: The left vertebral artery is patent and normal caliber. The visualized portions of the aortic arch are normal. The origins of the brachiocephalic and subclav isaias arteries are normal. No cervical lymphadenopathy. The thyroid gland is normal. The parotid and submandibular glands are no rmal. Multiple dental caries in. Focal lucencies. The cervical spine is normal. The visualized portions of the lungs are clear. IMPRESSION: 1. No acute intracranial process by noncontrast head CT. 2. No aneurysm. No intracranial stenosis or occlusion. 3. No stenosis of the cervical carotid or vertebral arteries. 4. Multiple dental caries and periapical lucencies. RS Compliance Statement - Stenosis calculations for CT, MR and conventional angiography are based u arie measurement of the distal ICA diameter in accordance with the NASCET methodology. Electronically signed by: Ochoa Gray MD (09/01/2021 7:47 AM) [facility]
[2021-09-01 09:45] LABS: BARBITURATES NEG (NEG); BENZODIAZEPINES NEG (NEG); CANNABINOIDS NEG (NEG); COCAINE NEG (NEG); METHADONE NEG (NEG); OPIATES NEG (NEG); PHENCYCLIDINE NEG (NEG)
[2021-09-01 09:47] LABS: BACTERIA,URINE 0 /HPF (0-FEW); BILIRUBIN,URINE NEG (NEG); CLARITY,URINE CLEAR; COLOR,URINE YELLOW; GLUCOSE,URINE NEG (NEG); NITRITE,URINE NEG (NEG); SQUAMOUS EPITHELIAL CELL,UR FEW /LPF; WBC,URINE 20-40 /HPF (0-4)
[2021-09-01 09:51] LABS: AMPHETAMINE/METHAMPHETAMINE POS (NEG)
[2021-09-01 11:50] VITALS: BP 117/77
== END 2021-09-01 12:16 | disposition home or self-care (01) ==
LOC: ER 05:25
DX: F15.159 Other stimulant abuse with stimulant-induced psychotic disorder, unspecified (principal); M62.838 Other muscle spasm; F19.10 Other psychoactive substance abuse, uncomplicated; I10 Essential (primary) hypertension; R79.89 Other specified abnormal findings of blood chemistry; Z88.5 Allergy status to narcotic agent; Z91.018 Allergy to other foods
CPT/HCPCS: 36415; 70450; 70496; 70498; 71045; 80048; 80076; 80307; 81001; 83735; 84443; 84484; 85025; 87086; 93005; 96361; 96374; 99285; G0480; J2060; J7120